=== PATIENT | male | born 1950 | race Caucasian/White ===

== ENCOUNTER → 2019-10-09 | Outpatient (CLI) | payer OTHER | LOC: MHCPAIN 08:50 | DX: M47.817 Spondylosis without myelopathy or radiculopathy, lumbosacral region (principal); M53.3 Sacrococcygeal disorders, not elsewhere classified; M54.5 Low back pain; G89.29 Other chronic pain | CPT/HCPCS: G0463 ==

== ENCOUNTER → 2020-11-10 | Day surgery (SDC) | payer OTHER ==
[~2020-11-10] MED LIST: SINGULAIR 110 MG/TAB PO; ULTRAM 50MG TAB50 MG PO
--- NOTE | 2020-11-10 07:58 | NUR ---
Patient ambulatory to [facility] and reports that the colon prep was ineffective. Dr. Weaver here and talks with the patient. Patient will be rescheuled for EGD and colonoscopy at a later date. Patient will be discharged to home and Dr. Weaver is sending patient home on new script to help regulate bowel movements.
== END ==
LOC: SDCO 07:48
DX: K59.00 Constipation, unspecified (principal); Z53.8 Procedure and treatment not carried out for other reasons; Z20.822 Contact with and (suspected) exposure to COVID-19

== ENCOUNTER 2020-12-01 16:21 | Emergency (ER) | payer OTHER ==
[~2020-12-01] VITALS: Ht 188 cm; Wt 104.5 kg
[2020-12-01 16:44] VITALS: TEMP 98.9
[2020-12-01] MEDS ORDERED: SINGULAIR 110 MG/TAB PO (19:02)
[2020-12-01] MEDS ORDERED: ULTRAM 50MG TAB50 MG PO (19:02)
[2020-12-01 19:20] LABS: BASO # 0.1 (0.0-0.2); BASO % 1.1 % (0.0-2.0); EOS # 0.1 (0.0-0.7); EOS % 1.2 % (0-4.0); GRAN # 4.2 (1.4-6.5); GRAN % 62.8 % (42.2-75.2); HEMATOCRIT 45.7 % (42.0-52.0); HEMOGLOBIN 15.1 g/dl (13.5-18.0); LYMPH # 1.6 (1.2-3.4); LYMPH % 24.1 % (20.0-51.0); MEAN CELL VOLUME 87 fl (80.0-100.0); MEAN CORPUSCULAR HEMOGLOBIN 29 pg (27.0-31.0); MEAN CORPUSCULAR HGB CONC 33 g/dl (33.0-37.0); MEAN PLATELET VOLUME 8.7 fl (7.4-10.4); MONO # 0.7 (0.1-0.6); MONO % 10.5 % (1.7-9.3); PLATELET COUNT 202 K/mm3 (130-400); RED BLOOD COUNT 5.26 M/mm3 (4.20-5.60); REDCELL DISTRIBUTION WIDTH-CV 12.5 % (11.5-14.5)
[2020-12-01 19:27] LABS: ALBUMIN 4.5 gm/dL (3.5-5.0); BILIRUBIN,TOTAL 0.8 mg/dL (0.0-1.0); CALCIUM 9.2 mg/dL (8.4-10.2); CREATININE, serum 0.85 (0.66-1.25); POTASSIUM 4.3 mmol/L (3.4-5.0); TOTAL PROTEIN 7.6 gm/dL (6.4-8.2)
[2020-12-01 21:13] VITALS: BP 132/79; PULSE 80
== END 2020-12-01 21:15 | disposition home or self-care (01) ==
LOC: COL.ER 16:21
PROVIDERS: Physician Assistant
DX: K59.00 Constipation, unspecified (principal); Z87.19 Personal history of other diseases of the digestive system; Z87.891 Personal history of nicotine dependence

== ENCOUNTER → 2021-05-21 | Outpatient (CLI) | payer OTHER | LOC: COL.RAD 08:04 | DX: K58.1 Irritable bowel syndrome with constipation (principal) ==

== ENCOUNTER → 2021-05-26 | Outpatient (CLI) | payer OTHER | LOC: COL.RAD 05-25 09:00 | DX: K58.1 Irritable bowel syndrome with constipation (principal) ==

== ENCOUNTER 2021-12-11 07:50 | Emergency (ER) | payer OTHER, MEDICARE ==
[~2021-12-11] VITALS: Ht 188 cm; Wt 104.5 kg
[2021-12-11 07:54] VITALS: BP 176/73; TEMP 98
[2021-12-11 08:47] LABS: STREP SCREEN NEGATIVE
[2021-12-11 08:58] VITALS: PULSE 76
== END 2021-12-11 08:58 | disposition home or self-care (01) ==
LOC: COL.ER 07:50
PROVIDERS: Emergency Medicine
DX: R59.0 Localized enlarged lymph nodes (principal); Z28.310 Unvaccinated for COVID-19
CPT/HCPCS: J8540

== ENCOUNTER → 2022-01-20 | Outpatient (CLI) | payer OTHER | LOC: COL.LAB 08:17 | DX: J30.1 Allergic rhinitis due to pollen (principal) ==